=== PATIENT | female | born 1985 | race Caucasian/White ===

== ENCOUNTER 2022-02-26 17:06 | Emergency (ER) | payer BC, SELFPAY ==
[2022-02-26 18:47] VITALS: BP 137/81; PULSE 116; RESP 18; TEMP 35.9; O2SAT 100; BMI 41.9
--- NOTE | 2022-02-26 19:44 | ED_ITS ---
HPI - General Adult General Time Seen by Provider: 19:44 Date Seen: 02/26/22 Chief complaint: Extremity Pain/Injury, Lower Stated complaint: Foreign Body on L foot Source: patient Mode of arrival: ambulatory Limitations: no limitations History of Present Illness HPI narrative: Patient is a 29 year white female side on and off problems with her left great toe. She has seen her regular doctor and got antibiotics, she has seen a patient transporter Dr. Franc Ocampo and given a steroid cream stronger than a triamcinolone which she still using, she was on some topical antibiotic as well as now Bactrim orally it has chronic common gone. Right now it is more violaceous and swollen over the 1st MTP she has not had a history of gout. She has been on Septra as mention and has not had similar issues denies any foreign body denies any spider bite or insect bite. She has an orthopedic appointment set up as well as a will seek Dermatology opinion again. Related Data Previous Rx's Medication Instructions Recorded fluticasone propionate 50 1 spray intranasal QDAY #16 grams 12/29/21 mcg/actuation nasal spray,suspension (Flonase Allergy Relief) sulfamethoxazole 800 1 tab PO BID 10 days #20 tabs 02/21/22 mg-trimethoprim 160 mg tablet (Bactrim DS) Allergies Allergy/AdvReac Type Severity Reaction Status Date / Time acetic acid Allergy Mild Skin Verified 02/26/22 18:55 irritation, burning carbamide peroxide Allergy Unknown Unknown Verified 02/26/22 18:55 glycerin Allergy Unknown Unknown Verified 02/26/22 18:55 amoxicillin Allergy Verified 02/26/22 18:55 Review of Systems Narrative: Negative for fevers, foreign body in the foot, trauma, injury. [facility] Social History Smoking Status: Never smoker Exam Narrative: Exam Narrative: Objective: In general patient is no apparent distress vital signs are unremarkable On the dorsum of her great toe over the proximal phalanx area there is violaceous area that is somewhat fluctuant. She reports that was firmer earlier and yesterday, seems to come and go, there is an eczematous type rash around this area. There is no palpable foreign body. There is no distal CMS issues. There is really no weeping to culture. Const: Vital Signs, click to edit/add: Vital Signs - 24 hr 11/28/22 18:47 Temperature 96.6 F L Pulse Rate [Right Pulse Oximeter] 116 H Respiratory Rate 18 Blood Pressure [Ri ght Upper Arm] 137/81 Pulse Oximetry 100 Oxygen Delivery Me thod Room Air Course Vital Signs Vital signs: Initial Vital Signs Temperature 96.6 F L 02/26/22 18:47 Temperature Source Temporal Artery Scan 02/26/22 18:47 Pulse Rate 116 H 02/26/22 18:47 Respiratory Rate 18 02/26/22 18:47 Blood Pressure 137/81 02/26/22 18:47 Blood Pressure Mean 99 02/26/22 18:47 Blood Pressure Position Sitting 02/26/22 18:47 Pulse Oximetry 100 02/26/22 18:47 Oxygen Delivery Method 02/26/22 18:47 Vital Signs Temperature 96.6 F L 02/26/22 18:47 Pulse Rate 116 H 02/26/22 18:47 Respiratory Rate 18 02/26/22 18:47 Blood Pressure 137/81 02/26/22 18:47 Pulse Oximetry 100 02/26/22 18:47 Oxygen Delivery Method 02/26/22 18:47 Temperature 96.6 F L 02/26/22 18:47 Pulse Rate 116 H 02/26/22 18:47 Respiratory Rate 18 02/26/22 18:47 Blood Pressure 137/81 02/26/22 18:47 Pulse Oximetry 100 02/26/22 18:47 Oxygen Delivery Method 02/26/22 18:47 Medical Decision Making MDM Narrative Medical decision making narrative: Patient is an unusual toe she reports she is up-to-date on tetanus, she is on antibiotics, I think tonight I would recommend we give her Rocephin IM I am not sure if this is infected area from exam signet serous egg eczematous eruption. I would recommend she see Dr. Chen again in the next few days and she will call tomorrow, recommend she see Orthopedics to see what they suggest. Recommend light activity, regular soaking in warm water Discharge Plan Discharge Clinical Impression: Foot infection Patient Disposition: Home, Self-Care Condition: Stable Additional Instructions: Light activity, light weight-bearing, warm soaks to the foot 3 times a day, continue the Mery Rocrocion IDALIA tonight, update Dr. Brunre is in the next couple of days, continue orthopedic appointment as planned. Return sooner problems or concerns Prescriptions: No Action sulfamethoxazole-trimethoprim [Bactrim DS] 800-160 mg tablet 1 tab PO BID 10 Days Qty: 20 0RF fluticasone propionate [Flonase Allergy Relief] 50 mcg/actuation spray,suspension 1 spray intranasal QDAY Qty: 16 7RF Hold Instructions: Doctor's Order Rx Instructions: administer into each nostril Follow Up/Referrals: Tracy Shen PA-C [Primary Care Provider] - Stand Alone Forms: jigl Info Instructions
[2022-02-26] MEDS: LIDOCAINE 1% 5 ml (pf) 5 ML VIAL 2.1 ML IM (20:01)
[2022-02-26] MEDS: cefTRIAXone 1 GM VIAL IM (20:01)
[2022-02-26 20:33] VITALS: PULSE 101; RESP 18; TEMP 36.6
== END 2022-02-26 20:33 | disposition home or self-care (01) ==
LOC: ED2 19:57
PROVIDERS: Emergency Provider Family Medicine; PCP Physician Assistant Medical
DX: L03.032 Cellulitis of left toe (principal)
CPT/HCPCS: 96372; 99282; 99283; J0696

== ENCOUNTER 2023-07-26 11:43 | Outpatient (CLI) | payer BC, SELFPAY | END 2023-07-26 11:44 | disposition home or self-care (01) | LOC: FRMREF 11:44 | PROVIDERS: PCP Physician Assistant Medical; Visit Provider Family Medicine | DX: R10.84 Generalized abdominal pain (principal); B96.89 Other specified bacterial agents as the cause of diseases classified elsewhere | CPT/HCPCS: 87086; 87186 ==

== ENCOUNTER 2023-07-30 08:15 | Outpatient (CLI) | payer BC, SELFPAY | END 2023-07-30 08:16 | disposition home or self-care (01) | LOC: NFLDREF 08-02 12:08 | PROVIDERS: PCP Physician Assistant Medical; Referring Provider Physician Assistant Medical; Visit Provider Family Medicine | DX: R10.84 Generalized abdominal pain (principal) | CPT/HCPCS: 87338 ==

== ENCOUNTER 2024-02-14 12:32 | Outpatient (CLI) | payer BC, SELFPAY | END 2024-02-14 12:33 | disposition home or self-care (01) | PROVIDERS: PCP Physician Assistant Medical; Visit Provider Family Medicine | DX: R10.9 Unspecified abdominal pain (principal); R15.2 Fecal urgency; R19.7 Diarrhea, unspecified | CPT/HCPCS: 80053; 83690; 84443; 86231; 86258; 86364 ==

== ENCOUNTER 2024-02-18 11:30 | Outpatient (CLI) | payer BC, SELFPAY | END 2024-02-18 11:31 | disposition home or self-care (01) | LOC: NFLDREF 02-22 02:45 | PROVIDERS: PCP Physician Assistant Medical; Referring Provider Physician Assistant Medical; Visit Provider Family Medicine | DX: R10.9 Unspecified abdominal pain (principal); R15.2 Fecal urgency; R19.7 Diarrhea, unspecified | CPT/HCPCS: 87045; 87046; 87338; 87427 ==

== ENCOUNTER 2024-02-26 14:00 | Outpatient (CLI) | payer BC, SELFPAY ==
--- NOTE | 2024-02-26 14:00 | CRLHL7_ITS ---
For Patients: As a result of the Century Cures Act, medical imaging exams and procedure reports are released immediately into your electronic medical record. You may view this report before your referring provider. If you have questions, please contact your health care provider. INDICATION: PERIANAL PAIN. POSSIBLE ABSCESS TECHNIQUE: CT of the pelvis was obtained with 123 mL of Isovue 370 intravenous contrast. Please note that all CT scans at this facility use dose modulation, iterative reconstruction, and/or weight-based dosing when appropriate to reduce radiation dose to as low as reasonably achievable. COMPARISON: 09/05/2011. FINDINGS: Gastrointestinal tract: Normal appendix. No evidence of bowel obstruction. Peritoneal cavity: Normal. Bladder: Normal. Pelvic organs: Nabothian cysts. 1.8 x 1.4 x 2.5 centimeter rim enhancing fluid collection is seen along the right anterolateral aspect of the anus (, ). Additional 1.1 centimeter rim enhancing fluid collection is seen more cranially (). Vasculature: Normal. Lymph nodes: Normal. Abdominal wall: Small fat containing periumbilical hernia. Musculoskeletal: Normal. IMPRESSION: 1.8 x 1.4 x 2.5 centimeter rim enhancing fluid collection is seen along the right anterolateral aspect of the anus. Additional 1.1 centimeter rim enhancing fluid collection is seen more cranially. Findings are compatible with a perineal/perianal abscess. Please note that all CT scans at this facility use dose modulation, iterative reconstruction, and/or weight-based dosing when appropriate to reduce radiation dose to as low as reasonably achievable. Dictated by Attila Garcia MD @ 02/26/2024 3:34:34 PM (Electronically Signed)
--- NOTE | 2024-02-26 19:38 | ED.NURSE ---
[facility] called requesting imaging report for pt be faxed to them. Report from Pelvis CT was faxed to [facility] ([phone]).
== END 2024-02-26 14:01 | disposition home or self-care (01) ==
PROVIDERS: PCP Physician Assistant Medical; Visit Provider Family Medicine
DX: K62.89 Other specified diseases of anus and rectum (principal)
CPT/HCPCS: 72193; Q9967